=== PATIENT | female | born 1985 | race Two or more races ===

== ENCOUNTER 2016-11-30 00:07 | Emergency (ER) | payer MEDICAID, OTHER ==
[~2016-11-30] VITALS: Ht 172.7 cm; Wt 100.2 kg
[~2016-11-30 00:07] MED LIST: METF10002 PO
[2016-11-30 00:08] VITALS: BP 126/82
== END 2016-11-30 00:41 | disposition home or self-care (01) ==
LOC: ED 00:35
DX: K04.7 Periapical abscess without sinus (principal); K08.89 Other specified disorders of teeth and supporting structures
CPT/HCPCS: 99283

== ENCOUNTER 2018-08-21 21:15 | Emergency (ER) | payer OTHER ==
[~2018-08-21] VITALS: Ht 170.2 cm; Wt 99.5 kg
[2018-08-21] MEDS ORDERED: ONDANSETRON ODT 4 MG ONE (21:36)
--- NOTE | 2018-08-21 21:37 | NUR ---
PT MEDICATED WITH ZOFRAN 8MG PO. URINE SAMPLE SENT. PT SITTING UP PLAYING ON PHONE, UPDATED ON POC.
[2018-08-21] MEDS ORDERED: ONDANSETRON ODT 4 MG PO ONE (22:00)
[2018-08-21 22:12] LABS: CULTURE INDICATED? YES; MICROSCOPIC INDICATED
[2018-08-21 22:23] LABS: BASOPHILS # (AUTO) 0.01 x10^3/uL (0-0.1); BASOPHILS % (AUTO) 0 % (0-1); EOSINOPHILS # (AUTO) 0.06 x10^3/uL (0-0.4); EOSINOPHILS % (AUTO) 1 % (1-7); LYMPHOCYTES # (AUTO) 1.81 x10^3/uL (1-3.4); LYMPHOCYTES % (AUTO) 17 % (22-44); MD NO; MEAN CORPUSCULAR HEMOGLOBIN 26.2 pg (27.0-34.8); MEAN CORPUSCULAR HGB CONC 33.5 g/dL (32.4-35.8); MEAN CORPUSCULAR VOLUME 78.1 fL (80-100); MEAN PLATELET VOLUME 9.2 fL (7.4-10.4); MONOCYTES # (AUTO) 0.48 x10^3/uL (0.2-0.8); MONOCYTES % (AUTO) 4 % (2-9); NEUTROPHILS # (AUTO) 8.59 x10^3/uL (1.8-6.8); NEUTROPHILS % (AUTO) 78 % (42-75); PLATELET COUNT 260 x10^3/uL (130-400); RED BLOOD COUNT 4.95 x10^6/uL (3.82-5.3); RED CELL DISTRIBUTION WIDTH 15.3 % (9.6-15.2)
[2018-08-21 22:35] LABS: ALANINE AMINOTRANSFERASE 38 U/L (12-78); ALBUMIN 3.4 g/dL (3.4-5.0); ANION GAP 8 mmol/L (5-15); CALCIUM 8.4 mg/dL (8.5-10.1); CHLORIDE 108 mmol/L (98-107)
[2018-08-21 22:40] LABS: ALKALINE PHOSPHATASE 171 U/L (45-117); BILIRUBIN,TOTAL 0.3 mg/dL (0.2-1.0); TOTAL PROTEIN 8.3 g/dL (6.4-8.2)
--- NOTE | 2018-08-21 22:41 | NUR ---
PT SITTING UP ON [employer] PLAYING ON PHONE. VSS. UPDATED ON POC.
[2018-08-21 22:53] VITALS: BP 132/72
== END 2018-08-21 22:55 | disposition home or self-care (01) ==
LOC: ED 21:54
DX: R10.84 Generalized abdominal pain (principal); R11.2 Nausea with vomiting, unspecified; R19.7 Diarrhea, unspecified; E86.0 Dehydration; E11.9 Type 2 diabetes mellitus without complications
CPT/HCPCS: 36415; 74022; 80053; 81001; 83690; 84703; 85025; 87086; 93005; 99284; Q0162

== ENCOUNTER 2020-04-12 20:31 | Inpatient (IN) | payer OTHER ==
[~2020-04-12] VITALS: Ht 170.2 cm; Wt 91.0 kg
--- NOTE | 2020-04-12 20:47 | NUR ---
PT CAME INTO ED FOR LEFT LOWER QUADRANT PAIN, PT REPORTS THAT IT HAS BEEN GOING ON FOR A WEEK, PT DENIES N/V. PT REPORTS IUD PLACED A MONTH AGO AND SLIGHT BURNING WITH URINATION. PT REPORTS IT IS A 10/. PT RESTING ON GURNEY, PLACED ON SPO2/BP MONITORING, BED IN LOWEST CALL LIGHT ON LAP. EMILY DUARTE AT BS FOR EVAL AND POC. NICOLETM.
--- NOTE | 2020-04-12 21:22 | NUR ---
pt ambulated to and from restroom with a smooth and steady gait, nad, ua obtained and sent to lab via tube system. no change in condition, wctm.
[2020-04-12 21:26] LABS: MICROSCOPIC AUTO
[2020-04-12 21:57] LABS: BASOPHILS % (AUTO) 1 % (0-1); EOSINOPHILS % (AUTO) 2 % (1-7); LYMPHOCYTES % (AUTO) 23 % (22-44); MEAN CORPUSCULAR HEMOGLOBIN 26.5 pg (27.0-34.8); MEAN CORPUSCULAR HGB CONC 32.6 g/dL (32.4-35.8); MEAN PLATELET VOLUME 8.5 fL (7.4-10.4); MONOCYTES % (AUTO) 8 % (2-9); NEUTROPHILS % (AUTO) 67 % (42-75); PLATELET COUNT 327 x10^3/uL (130-400); RED BLOOD COUNT 4.28 x10^6/uL (3.82-5.3); RED CELL DISTRIBUTION WIDTH 13.8 % (9.6-15.2)
[2020-04-12 21:59] LABS: MD NO
[2020-04-12 22:10] LABS: ALBUMIN 2.7 g/dL (3.4-5.0); ANION GAP 5 mmol/L (5-15); CALCIUM 8.1 mg/dL (8.5-10.1); CHLORIDE 106 mmol/L (98-107)
[2020-04-12 22:16] LABS: ALANINE AMINOTRANSFERASE 27 U/L (12-78); ALKALINE PHOSPHATASE 166 U/L (45-117); BILIRUBIN,TOTAL 0.2 mg/dL (0.2-1.0); CREATININE 0.63 mg/dL (0.55-1.02); TOTAL PROTEIN 7.5 g/dL (6.4-8.2)
--- NOTE | 2020-04-12 22:53 | NUR ---
PT RESTING ON KATI, KT, NO CHANGE IN CONDITION, DENIES ADDITIONAL QUESTIONS OR NEEDS, WCTM. PT TO RECEIVE CT SCAN.
[2020-04-12] MEDS ORDERED: OMNIPAQUE 350 MG/ML, 100ML BOTTLE ONE (23:00)
--- NOTE | 2020-04-12 23:26 | NUR ---
pt back from ct at this time. nad, resting on gurney, no change in condition, wctm.
--- NOTE | 2020-04-13 00:50 | NUR ---
RN TO BEDSIDE, PT NAD, RESTING ON GURNEY, APPEARS COMFORTABLE, DENIES ADDITIONAL NEEDS AT THIS TIME. WCTM.
[2020-04-13] MEDS ORDERED: DOXYCYCLINE 100MG TABLET ONE (01:19)
[2020-04-13 01:22] LABS: CLUE CELLS NONE SEEN (NONE SEEN); WET PREP WBCS MODERATE (FEW)
[2020-04-13] MEDS ORDERED: DOXYCYCLINE 100MG TABLET PO ONE (01:30)
[2020-04-13] MEDS ORDERED: CEFOTETAN PMX 2GM/50ML 50 ML IVPB ONE (01:30)
[2020-04-13] MEDS ORDERED: ONDANSETRON 2MG/ML, 2ML IVPush PRN (02:00)
[2020-04-13] MEDS ORDERED: MORPHINE SULFATE 4 MG/ML, 1ML IVPush PRN (02:00)
[2020-04-13] MEDS ORDERED: SODIUM CHLORIDE 0.9% 1,000 ML IV ONE (02:00)
[2020-04-13 02:44] VITALS: BP 133/85
[2020-04-13 07:29] VITALS: BP 106/69
[2020-04-13 15:20] VITALS: BP 114/74
[2020-04-13 19:58] VITALS: BP 122/79
[2020-04-14 00:06] VITALS: BP 110/72
[2020-04-14 06:28] LABS: BASOPHILS % (AUTO) 1 % (0-1); EOSINOPHILS % (AUTO) 1 % (1-7); LYMPHOCYTES % (AUTO) 19 % (22-44); MD NO; MEAN CORPUSCULAR HEMOGLOBIN 26.1 pg (27.0-34.8); MEAN CORPUSCULAR HGB CONC 32.2 g/dL (32.4-35.8); MEAN PLATELET VOLUME 8.5 fL (7.4-10.4); MONOCYTES % (AUTO) 6 % (2-9); NEUTROPHILS % (AUTO) 73 % (42-75); PLATELET COUNT 337 x10^3/uL (130-400); RED BLOOD COUNT 4.66 x10^6/uL (3.82-5.3); RED CELL DISTRIBUTION WIDTH 13.6 % (9.6-15.2)
[2020-04-14 06:55] VITALS: BP 107/69
[2020-04-14] MEDS ORDERED: CEFOTETAN PMX 2GM/50ML 50 ML IVPB ONE (11:00)
[2020-04-14] MEDS ORDERED: DOXYCYCLINE 100 MG in DEXTROSE 5% 250 ML IV ONE (11:00)
[2020-04-14] MEDS ORDERED: METR500T PO (11:31)
[2020-04-14] MEDS ORDERED: DOXY100T PO (11:31)
[2020-04-14 13:49] VITALS: BP 125/80
== END 2020-04-14 14:45 | disposition home or self-care (01) | DRG 758 ==
LOC: ED 21:01 → EDIP 04-13 01:39 → 4NE 04-13 02:26 → DCLOUNGE 04-14 14:38
PROVIDERS: ADMIT Obstetrics & Gynecology; ATTEND Obstetrics & Gynecology
DX: N70.93 Salpingitis and oophoritis, unspecified (principal); N39.0 Urinary tract infection, site not specified; E11.9 Type 2 diabetes mellitus without complications; R16.0 Hepatomegaly, not elsewhere classified; R19.00 Intra-abdominal and pelvic swelling, mass and lump, unspecified site; Z20.828 Contact with and (suspected) exposure to other viral communicable diseases; D72.829 Elevated white blood cell count, unspecified
CPT/HCPCS: 36415; 74177; 76830; 76856; 80053; 81001; 84703; 85025; 87086; 87210; 87491; 87591; 87635; 87808; 96374; 99285; G0378; J7060; Q9967; J7030

== ENCOUNTER 2020-04-16 23:18 | Emergency (ER) | payer OTHER ==
[~2020-04-16] VITALS: Ht 170.2 cm; Wt 91.4 kg
[~2020-04-16 23:18] MED LIST changes: +DOXY100T PO; +METR500T PO
[2020-04-17 00:08] LABS: BASOPHILS % (AUTO) 2 % (0-1); EOSINOPHILS % (AUTO) 2 % (1-7); LYMPHOCYTES % (AUTO) 22 % (22-44); MEAN CORPUSCULAR HEMOGLOBIN 26.2 pg (27.0-34.8); MEAN CORPUSCULAR HGB CONC 32.6 g/dL (32.4-35.8); MEAN PLATELET VOLUME 8.2 fL (7.4-10.4); MONOCYTES % (AUTO) 8 % (2-9); NEUTROPHILS % (AUTO) 66 % (42-75); PLATELET COUNT 407 x10^3/uL (130-400); RED BLOOD COUNT 4.61 x10^6/uL (3.82-5.3); RED CELL DISTRIBUTION WIDTH 13.9 % (9.6-15.2)
[2020-04-17 00:09] LABS: MICROSCOPIC INDICATED
[2020-04-17 00:17] LABS: ALANINE AMINOTRANSFERASE 25 U/L (12-78); ANION GAP 4 mmol/L (5-15); CALCIUM 8.3 mg/dL (8.5-10.1); CHLORIDE 104 mmol/L (98-107); CREATININE 0.78 mg/dL (0.55-1.02)
[2020-04-17 00:23] LABS: ALKALINE PHOSPHATASE 176 U/L (45-117); BILIRUBIN,TOTAL 0.1 mg/dL (0.2-1.0); TOTAL PROTEIN 8.4 g/dL (6.4-8.2)
[2020-04-17 00:40] LABS: MD SCAN
--- NOTE | 2020-04-17 00:54 | NUR ---
pt to room from lobby
[2020-04-17] MEDS ORDERED: KETOROLAC 30 MG/1 ML ONE (01:56)
[2020-04-17] MEDS ORDERED: KETOROLAC 30 MG/1 ML IM ONE (02:00)
[2020-04-17 02:01] VITALS: BP 113/69
--- NOTE | 2020-04-17 02:02 | NUR ---
BREAK RN: PT MEDICATED. VSS. PT GETTING DRESSED AND WILL BE DISCHARGED
--- NOTE | 2020-04-17 02:09 | NUR ---
BREAK RN: Patient given discharge instructions and they have confirmed that they understand the instructions. Patient ambulatory with steady gait.
== END 2020-04-17 02:11 | disposition home or self-care (01) ==
LOC: ED 04-17 00:57
DX: D25.1 Intramural leiomyoma of uterus (principal); N70.92 Oophoritis, unspecified; N83.202 Unspecified ovarian cyst, left side; R10.32 Left lower quadrant pain; E11.9 Type 2 diabetes mellitus without complications; Z90.49 Acquired absence of other specified parts of digestive tract
CPT/HCPCS: 36415; 76830; 80053; 81001; 84703; 85025; 87086; 96372; 99284; J1885